=== PATIENT | male | born 1975 | race Two or more races ===

== ENCOUNTER 2020-03-22 02:21 | Emergency (ER) | payer SELFPAY ==
[~2020-03-22] VITALS: Ht 167.6 cm; Wt 99.8 kg
--- NOTE | 2020-03-22 02:40 | NUR ---
ED Nurse Note: Recieved pt from home, here with c/o headache x 4 days and tonight with dizziness and left eye blurred vision, pt denies CP, SOB, nausea, fevers, HX of HTN or any other complaints, pt takes no home meds and states headaches are intermittent with no pain ast all at this time, pt is ambulatory with steady gait, pt asisted to gowning and cardiac monitoring, will resume care as ordered and continue to closely monitor.
--- NOTE | 2020-03-22 02:45 | Emergency Room Report ---
History of Present Illness General Chief Complaint: Headache Source: Patient Present Illness HPI 45-year-old male with no past medical history. He presents with chief complaint of headache and blurry vision. He has been having headache for the last 3 to 4 days. On and off. In different area. He woke up tonight with headache and blurry vision in his left eye. Blurry vision resolved. Still has a throbbing headache. Denies any alcohol drugs but denies any fever or chills. No focal deficit. Never had this problem before. Allergies: Coded Allergies: No Known Allergies (Unverified , 03/22/20) COVID-19 Screening Contact w/high risk pt: No Experienced COVID-19 symptoms?: No COVID-19 Testing performed [employer]: No Patient History Past Medical History: see triage record, old chart reviewed Past Surgical History: none Pertinent Family History: none Social History: Denies: smoking Immunizations: other Reviewed Nursing Documentation: PMH: Agreed; PSxH: Agreed Nursing Documentation-PMH Past Medical History: No Stated History Review of Systems Eye: Denies: eye pain, blurred vision ENT: Denies: ear pain, nose congestion, throat swelling Respiratory: Denies: cough, shortness of breath Cardiovascular: Denies: chest pain, palpitations Gastrointestinal: Denies: abdominal pain, diarrhea, nausea, vomiting Musculoskeletal: Denies: back pain, joint pain Skin: Denies: rash Neurological: Reports: headache; Denies: numbness Endocrine: Denies: increased thirst, increased urine Hematologic/Lymphatic: Denies: easy bruising All Other Systems: negative except mentioned in HPI Physical Exam Vital Signs Date Time Temp Pulse Resp B/P (MAP) Pulse Ox O2 Delivery O2 Flow Rate FiO2 03/22/20 02:28 98.2 79 16 134/88 (103) 97 Room Air Vitals normal Sp02 EP Interpretation: reviewed, normal General Appearance: well appearing, no apparent distress, alert Head: normocephalic, atraumatic Eyes: bilateral eye PERRL, bilateral eye EOMI ENT: hearing grossly normal, normal pharynx Neck: full range of motion, supple, no meningismus Respiratory: chest non-tender, lungs clear, normal breath sounds Cardiovascular #1: regular rate, rhythm, no murmur Gastrointestinal: normal bowel sounds, non tender, no mass, no organomegaly, no bruit, non-distended Musculoskeletal: back normal, normal range of motion, gait/station normal Psychiatric: mood/affect normal Medical Decision Making Diagnostic Impression: Primary Impression: Headache Qualified Codes: R51 - Headache ER Course Patient with patient presents with headache and blurry vision in left eye. Everything resolved now. No evidence of TIA or CVA. No evidence of bleed or meningitis. Will discharge home. CT/MRI/US Diagnostic Results CT/MRI/US Diagnostic Results : Imaging Test Ordered: CT head Impression Negative per radiologist Last Vital Signs Date Time Temp Pulse Resp B/P (MAP) Pulse Ox O2 Delivery O2 Flow Rate FiO2 03/22/20 02:28 98.2 79 16 134/88 (103) 97 Room Air Status: improved Disposition: HOME, SELF-CARE Condition: Stable Scripts Ibuprofen* (MOTRIN*) 600 Mg Tablet 600 MG ORAL Q6H PRN for For Pain, #30 TAB 0 Refills Prov: Andrea Nolan MD 03/22/20 Patient Instructions: General Headache Without Cause Additional Instructions: Follow-up with in 7 days. If continue with headache, you may need referral to see a neurologist. Return if worse. Andrea Nolan MD Mar 22, 2020 02:44
[2020-03-22] MEDS ORDERED: IBUPROFEN600 M1 ORAL (03:44)
[2020-03-22 04:00] VITALS: BP 138/80
--- NOTE | 2020-03-22 04:00 | NUR ---
ER DISCHARGE NOTE: Patient is cleared to be discharged per ERMD, pt is aox4, on room air, with stable vital signs. pt was given dc and prescription instructions, pt was able to verbalize understanding, pt id band removed without complications. pt is able to ambulate with steady gait. pt took all belongings. pt continues to deny pain at this time.
--- NOTE | 2020-03-22 04:06 | Diagnostic Imaging Report ---
EXAM: CT Head Without Intravenous Contrast CLINICAL HISTORY: PAIN TECHNIQUE: Axial computed tomography images of the head/brain without intravenous contrast. CTDI is 43 mGy and DLP is 861 mGy-cm. One or more of the following dose reduction techniques were used: automated exposure control, adjustment of the mA and/or kV according to patient size, use of iterative reconstruction technique. COMPARISON: No relevant prior studies available. FINDINGS: Brain: No evidence of intracranial hemorrhage or mass-effect. No significant white matter disease. Ventricles: Unremarkable. No ventriculomegaly. Bones/joints: Unremarkable. No acute fracture. Soft tissues: Unremarkable. Sinuses: Unremarkable as visualized. No acute sinusitis. Mastoid air cells: Unremarkable as visualized. No mastoid effusion. Other findings: Motion degraded study. IMPRESSION: No evidence of acute intracranial abnormality.
== END 2020-03-22 04:12 | disposition home or self-care (01) ==
LOC: EMR 02:50
DX: R51 Headache (principal); H53.8 Other visual disturbances
CPT/HCPCS: 70450; 99284